=== PATIENT | male | born 1990 | race Caucasian/White ===

== ENCOUNTER 2019-08-10 12:01 | Emergency (ER) | payer SELFPAY ==
[2019-08-10 12:28] VITALS: TEMP 97
--- NOTE | 2019-08-10 12:39 | ED.PDOC ---
History of Present Illness - General Chief Complaint: Dental/Mouth Stated Complaint: Dental discomfort & swelling to L Time Seen by Provider: 08/10/19 12:28 Source: patient Exam Limitations: no limitations - History of Present Illness Initial Comments: The patient is a 28-year-old male presenting to emergency room secondary to dental pain on his posterior left inferior molars. Pain has been present for 24 hours. No relief with topical Orajel. He does have dental caries. No evidence of any abscess formation. No sepsis. No facial swelling at this point. Timing/Duration: 24 hours Severity: moderate Improving Factors: nothing Worsening Factors: eating Associated Symptoms: denies symptoms Allergies/Adverse Reactions: Allergies NO KNOWN ALLERGY Allergy (Verified 08/10/19 12:19) Home Medications: Ambulatory Orders Clindamycin HCl 300 mg PO Q8HR #21 cap 08/10/19 Tramadol HCl 50 mg PO Q8HR PRN #20 tab 08/10/19 Review of Systems - Review of Systems Constitutional: States: no symptoms reported EENTM: States: see HPI Respiratory: States: no symptoms reported Cardiology: States: no symptoms reported Gastrointestinal/Abdominal: States: no symptoms reported Genitourinary: States: no symptoms reported Musculoskeletal: States: no symptoms reported Skin: States: no symptoms reported Neurological: States: no symptoms reported Endocrine: States: no symptoms reported All other Systems: No Change from Baseline Past Medical History (General) - Patient Medical History Hx Stroke: No Hx Congestive Heart Failure: No Hx Diabetes: No Hx MRSA: No - Vaccination History Hx Influenza Vaccination: No Hx Pneumococcal Vaccination: No - Social History Hx Tobacco Use: Yes Hx Alcohol Use: Yes - Social Hx Substance Use: No Family Medical History - Family History Father Family History: No Known Living Status: Still Living Physical Exam - Physical Exam General Appearance: Alert, Comfortable, No apparent distress Eye Exam: bilateral normal Ears, Nose, Throat: hearing grossly normal, other - see history of present illness Neck: non-tender, full range of motion Respiratory: no respiratory distress, no accessory muscle use Cardiovascular/Chest: normal peripheral pulses, no edema Peripheral Pulses: radial,right: 2+, radial,left: 2+ Rectal Exam: deferred Extremity: normal range of motion, no pedal edema, normal capillary refill 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 The patient will be written for tramadol for as needed use but he can also take 2 Aleve twice daily with food help reduce inflammation. He can also use topical Orajel or Anbesol to help reduce pain. Additionally if he can clean the areas really well he can apply clove oil for 30 seconds to the site which may actually help significantly. He'll be written for clindamycin for 7 days to help reduce any infection that may be contributing to the pain. Ultimately he needs to see a dentist. ER warnings were given. anurag serrano [id number] Departure - Departure Clinical Impression: Infected dental caries Disposition: Discharge to Home or Self Care Condition: Fair Departure Forms: ED Discharge - Pt. Copy, Patient Portal Self Enrollment Instructions: DI for Dental Pain Diet: regular diet Activity: increase activity as tolerated Prescriptions: Clindamycin HCl 300 mg PO Q8HR #21 cap Tramadol HCl 50 mg PO Q8HR PRN #20 tab PRN Reason: Moderate Pain Home Medications: Ambulatory Orders Clindamycin HCl 300 mg PO Q8HR #21 cap 08/10/19 Tramadol HCl 50 mg PO Q8HR PRN #20 tab 08/10/19 Additional Instructions: the patient's 28-year-old male presented to the emergency room secondary to pain from infected dental caries and dental fractures. The patient will be written for tramadol for as needed use but he can also take 2 Aleve twice daily with food help reduce inflammation. He can also use topical Orajel or Anbesol to help reduce pain. Additionally if he can clean the areas really well he can apply clove oil for 30 seconds to the site which may actually help significantly. He'll be written for clindamycin for 7 days to help reduce any infection that may be contributing to the pain. Ultimately he needs to see a dentist. ER warnings were given.
[2019-08-10 12:49] VITALS: BP 137/101; O2SAT 98
== END 2019-08-10 12:45 | disposition home or self-care (01) ==
LOC: ER 12:01
DX: K04.7 Periapical abscess without sinus (principal); K02.9 Dental caries, unspecified; S02.5XXA Fracture of tooth (traumatic), initial encounter for closed fracture; Z87.891 Personal history of nicotine dependence; X58.XXXA Exposure to other specified factors, initial encounter; Y92.9 Unspecified place or not applicable

== ENCOUNTER 2019-08-13 16:35 | Emergency (ER) | payer SELFPAY ==
[2019-08-13] MEDS ORDERED: AMOXICILLIN & POT CLAVULANATE 875 MG TAB PO ONE (16:52)
[2019-08-13] MEDS ORDERED: traMADol HCL 50 MG TAB PO ONE (16:52)
--- NOTE | 2019-08-13 16:55 | ED.PDOC ---
History of Present Illness - General Chief Complaint: Dental/Mouth Stated Complaint: toothache/allergic to ABX Time Seen by Provider: 08/13/19 16:37 Source: patient Exam Limitations: no limitations - History of Present Illness Initial Comments: the patient is a 28-year-old male presenting to emergency room secondary to persistent painin his left lower molars secondary to infected dental caries. He does have a little bit of swelling adjacent to the tooth No obvious abscess for drainage. He has been taking the clindamycin he reports as he is supposed to. The pain is not getting better nor swelling. He reports that he has responded well to forms of amoxicillin in the past. No obvious adverse reaction from the medication. No evidence of sepsis. Timing/Duration: 1 week Severity: moderate Improving Factors: nothing Worsening Factors: eating Associated Symptoms: denies symptoms Allergies/Adverse Reactions: Allergies NO KNOWN ALLERGY Allergy (Verified 08/10/19 12:19) Home Medications: Ambulatory Orders Clindamycin HCl 300 mg PO Q8HR #21 cap 08/10/19 Tramadol HCl 50 mg PO Q8HR PRN #20 tab 08/10/19 Amoxicillin & Pot Clavulanate [Augmentin Tab] 875 mg PO BID #20 tab 08/13/19 Tramadol HCl 50 mg PO Q8HR PRN #20 tab 08/13/19 Review of Systems - Review of Systems Constitutional: States: no symptoms reported EENTM: States: mouth pain Respiratory: States: no symptoms reported Cardiology: States: no symptoms reported Gastrointestinal/Abdominal: States: no symptoms reported Genitourinary: States: no symptoms reported Musculoskeletal: States: no symptoms reported Skin: States: no symptoms reported Neurological: States: no symptoms reported Endocrine: States: no symptoms reported All other Systems: No Change from Baseline Past Medical History (General) - Patient Medical History Hx Stroke: No Hx Congestive Heart Failure: No Hx Diabetes: No Hx MRSA: No - Vaccination History Hx Influenza Vaccination: No Hx Pneumococcal Vaccination: No - Social History Hx Tobacco Use: Yes Hx Alcohol Use: Yes - Social Hx Substance Use: No Family Medical History - Family History Father Family History: No Known Living Status: Still Living Physical Exam - Physical Exam General Appearance: Alert, No apparent distress Eye Exam: bilateral normal Ears, Nose, Throat: hearing grossly normal, other - see history of present illness. 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 The clindamycin does not appear to be clearing the infection so he will be switched over to Augmentin with the first dose given tonight. He will also be written for some additional doses of tramadol for pain control and Aleve should be continued to help control pain. He needs to keep himself well hydrated and take the medications with food. He does need to see a dentist as ultimately the infection may not clear until the teeth are treated directly. No abscess to drain at this point. ER warnings were given for any significant worsening. anurag serrano [id number] Departure - Departure Clinical Impression: Infected dental caries Disposition: Discharge to Home or Self Care Condition: Good Departure Forms: ED Discharge - Pt. Copy, Patient Portal Self Enrollment Instructions: DI for Dental Pain Diet: regular diet Activity: increase activity as tolerated Prescriptions: Tramadol HCl 50 mg PO Q8HR PRN #20 tab PRN Reason: Moderate Pain Amoxicillin & Pot Clavulanate [Augmentin Tab] 875 mg PO BID #20 tab Home Medications: Ambulatory Orders Clindamycin HCl 300 mg PO Q8HR #21 cap 08/10/19 Tramadol HCl 50 mg PO Q8HR PRN #20 tab 08/10/19 Amoxicillin & Pot Clavulanate [Augmentin Tab] 875 mg PO BID #20 tab 08/13/19 Tramadol HCl 50 mg PO Q8HR PRN #20 tab 08/13/19 Additional Instructions: the patient is a 28-year-old male presenting to the emergency room secondary to persistent pain and swelling from left lower molar infected dental caries. The clindamycin does not appear to be clearing the infection so he will be switched over to Augmentin with the first dose given tonight. He will also be written for some additional doses of tramadol for pain control and Aleve should be continued to help control pain. He needs to keep himself well hydrated and take the medications with food. He does need to see a dentist as ultimately the infection may not clear until the teeth are treated directly. No abscess to drain at this point. ER warnings were given for any significant worsening.
[2019-08-13 17:41] VITALS: BP 144/108; TEMP 98.1; O2SAT 99
== END 2019-08-13 17:10 | disposition home or self-care (01) ==
LOC: ER 16:35
DX: K04.7 Periapical abscess without sinus (principal); K02.9 Dental caries, unspecified; Z87.891 Personal history of nicotine dependence